=== PATIENT | male | born 1975 | race Caucasian/White ===

== ENCOUNTER 2018-03-08 16:46 | Emergency (ER) | payer OTHER ==
[2018-03-08] MEDS ORDERED: LIDOCAINE 1% INJ-PF (10 MG/ML) 30 ML SDV INJ ONE (18:05)
[2018-03-08] MEDS ORDERED: DIPH/PERTUSS(ACELL)/TETANUS VAC/PF 0.5 ML SYR (>=10YO) IM ONE (18:09)
[2018-03-08] MEDS ORDERED: CEPHALEXIN 500 MG CAPSULE PO ONE (18:09)
--- NOTE | 2018-03-08 18:12 | ER Document Report ---
ED Extremity Problem, Lower - General Chief Complaint: Laceration Stated Complaint: KNEE INJURY Time Seen by Provider: 03/08/18 17:47 Mode of Arrival: Ambulatory Information source: Patient Notes: 42-year-old presents to ED for complaint of a left knee laceration when he states a tree branch fell on his knee. He states the last time he remembers having a tetanus shot was when he was 20. He is alert and oriented respirations regular and unlabored speaking in full sentences walk with a even steady gait. TRAVEL OUTSIDE OF THE [place] IN LAST 30 DAYS: No - HPI Patient complains to provider of: Injury, Pain Location: Knee Occurred: Just prior to arrival Where: Home, Outdoors Onset/Duration: Sudden Quality of pain: Sharp Severity: Moderate Pain Level: 3 Context: Laceration Recent injury: Yes Associated symptoms: Painful ambulation Exacerbated by: Movement, Walking Relieved by: Nothing - Related Data Allergies/Adverse Reactions: No Known Allergies Allergy (Unverified 03/08/18 16:55) Past Medical History - General Information source: Patient - Social History Smoking Status: Never Smoker - vapor cigarettes Chew tobacco use (# tins/day): No Frequency of alcohol use: Social Drug Abuse: None Occupation: Teacher Lives with: Parents Family History: Reviewed & Not Pertinent Patient has suicidal ideation: No Patient has homicidal ideation: No - Past Medical History Cardiac Medical History: Reports: None Pulmonary Medical History: Reports: None EENT Medical History: Reports: None Neurological Medical History: Reports: None Endocrine Medical History: Reports: None Renal/ Medical History: Reports: None Malignancy Medical History: Reports None GI Medical History: Reports: None Musculoskeletal Medical History: Reports Hx Musculoskeletal Trauma Skin Medical History: Reports None Psychiatric Medical History: Reports: None Traumatic Medical History: Reports: Hx Fractures - Right ankle right arm Past Surgical History: Reports: Hx Orthopedic Surgery - Ankle fracture - Immunizations Immunizations up to date: Yes Hx Diphtheria, Pertussis, Tetanus Vaccination: Yes - 03/08/2018 Review of Systems - Review of Systems Constitutional: No symptoms reported EENT: No symptoms reported Cardiovascular: No symptoms reported Respiratory: No symptoms reported Gastrointestinal: No symptoms reported Genitourinary: No symptoms reported Male Genitourinary: No symptoms reported Musculoskeletal: Other - Patient to the left knee Skin: No symptoms reported Hematologic/Lymphatic: No symptoms reported Neurological/Psychological: No symptoms reported -: Yes All other systems reviewed and negative Physical Exam - Vital signs Vitals: Temp Pulse Resp BP Pulse Ox 98.1 F 112 H 14 138/78 H 96 03/08/18 17:03 03/08/18 17:03 03/08/18 17:03 03/08/18 17:03 03/08/18 17:03 Interpretation: Normal - General General appearance: Appears well, Alert - HEENT Head: Normocephalic, Atraumatic Eyes: Normal Pupils: PERRL - Respiratory Respiratory status: No respiratory distress Chest status: Nontender Breath sounds: Normal Chest palpation: Normal - Cardiovascular Rhythm: Regular Heart sounds: Normal auscultation Murmur: No - Abdominal Inspection: Normal Distension: No distension Bowel sounds: Normal Tenderness: Nontender Organomegaly: No organomegaly - Back Back: Normal, Nontender - Extremities General upper extremity: Normal inspection, Nontender, Normal color, Normal ROM , Normal temperature General lower extremity: Normal color, Normal ROM, Normal temperature, Normal weight bearing. No: Najma's sign Knee: Tender, Laceration, Pain with ROM, Patellar tendon intact. No: Abrasion, Deformity, Dislocation, Drawer's test instability, Ecchymosis, Instability, Joint effusion, Laxity with varus stress, Popliteal fossa tender, Tender joint line, Unable to bear weight - Neurological Neuro grossly intact: Yes Cognition: Normal Orientation: AAOx4 [place] Coma Scale Eye Opening: Spontaneous [place] Coma Scale Verbal: Oriented Luisa Coma Scale Motor: Obeys Commands Luisa Coma Scale Total: 15 Speech: Normal Motor strength normal: LUE, RUE, LLE, RLE Sensory: Normal - Psychological Associated symptoms: Normal affect, Normal mood - Skin Skin Temperature: Warm Skin Moisture: Dry Skin Color: Normal Skin irregularity: Laceration Irregularity with: Swelling - Knee, Tenderness Course - Vital Signs Vital signs: Temp Pulse Resp BP Pulse Ox 98.6 F 996 H 16 138/76 H 96 03/08/18 20:18 03/08/18 20:18 03/08/18 20:18 03/08/18 20:18 03/08/18 20:18 Procedures - Immobilization Left Knee Time completed: 19:58 Pre-Proc Neuro Vasc Exam: Normal Immobilizer type: Crutches, Knee immobilizer Performed by: PCT Post-Proc Neuro Vasc Exam: Normal Alignment checked and good: Yes - Laceration/Wound Repair Left Knee Time completed: 19:59 Wound length (cm): 4 Wound's Depth, Shape: Superficial, Linear Laceration pre-procedure: Sterile PPE donned, Sterile drapes applied, Shur- Clens applied Anesthetic type: 1% Lidocaine Volume Anesthetic (mLs): 6 Wound explored: Contaminated, Foreign body removed Irrigated w/ Saline (mLs): 400 Wound Debrided: Minimal Wound Repaired With: Sutures Suture Size/Type: 4:0, Ethilon Number of Sutures: 6 Layer Closure?: No Post-procedure wound care: Sterile dressing applied, Splint applied Post-procedure NV exam normal: Yes Complications: No Discharge - Discharge Clinical Impression: Laceration of left knee with foreign body Qualifiers: Encounter type: initial encounter Qualified Code(s): S81.022A - Laceration with foreign body, left knee, initial encounter Condition: Stable Disposition: HOME, SELF-CARE Additional Instructions: Knee Laceration A laceration on the knee can present some problems. The skin over the knee heals slowly, and seems especially prone to infection. Bending of the knee can disturb the cut and sometimes prevents proper healing. It's important that the wound remain undisturbed. Bending of the knee is absolutely forbidden if it pulls on the stitches. No contact sports or kneeling are allowed. Keep the wound and dressing clean. Do not shower or bathe the area unless okayed by the doctor. If the dressing gets wet, remove it and blot the wound dry. Then reapply a clean, dry dressing. Change the dressing once a day. If any signs of infection occur (swelling, redness, increasing tenderness, red streaks, tender lumps in the groin above the laceration, or fever), see the doctor immediately. SOAP CLEANSING: Gently wash the wound daily using a mild soap (like Ivory, Phisoderm, Neutrogena). Use warm water, rubbing gently until all debris, ooze, and crusting have been washed from the wound. Allow to dry briefly (about 10 minutes) after cleaning. Repeat this cleansing at least three times a day for the first two days and then once or twice a day. ANTIBIOTIC OINTMENT PROTECTION: Your wounds are such that dressing them is not practical or optional. After cleansing, you should apply a thin coating of antibiotic ointment ( Bacitracin, not Neosporin) to the wounds at least three times daily. This lessens infection risk, and may decrease the amount of scarring. Use a q-tip or dull butter knife, not your finger, to apply this ointment. Any debris or ooze which builds up in the ointment should be gently rubbed off with a sterile gauze pad. Harder crusting may need to be gently scrubbed off with a clean wash cloth with soap and warm water, perhaps applying a warm, wet wash cloth to the wound for ten minutes first. Development of redness, severe itching, or blistering may mean allergy to the ointment. See the doctor. TETANUS IMMUNIZATION GIVEN: You have been given an immunization against tetanus. Please record this in your records. In general, a booster is needed only once every 10 years. The tetanus shot protects against tetanus or "lockjaw," which is a complication of certain wound infections (the tetanus shot cannot protect against the actual infection). The immunization site may become warm and red due to local reaction. If this occurs, apply warm compresses and take aspirin or ibuprofen to reduce inflammation and discomfort. Return for evaluation if the reaction becomes severe. Cephalexin The antibiotic you've been prescribed is a member of the cephalosporin class. This type of antibiotic covers a wide variety of infections, including those of the skin, lungs, and urinary tract. It's useful for staph infections. This antibiotic is slightly similar to the penicillin family. In rare cases , a person who is allergic to penicillin will also be allergic to this medication. If you have had a severe allergic reaction to penicillin, and have not taken this antibiotic since that time, notify your doctor. Antibiotics which cover many germs ("broad spectrum" antibiotics) are more likely to cause diarrhea or "yeast" infections. Women prone to vaginal yeast problems may suffer an attack after taking this antibiotic. In infants, oral thrush (white spots "stuck" on the cheek) or yeast diaper rash may result. See your doctor if these problems occur. Call at once if you develop itching, hives , shortness of breath, or lightheadedness. Knee Immobilizing Splint The knee immobilizing splint will protect the injury while healing begins. This type of splint does not allow the knee to bend at all. No running or sports will be possible. If the splint allows painfree walking, it's giving adequate protection. If there is still significant pain, crutches may be needed as well. Don't do anything that hurts. Adjusted the splint, if necessary. The stiffeners on the sides are attached with Velcro, so they can be easily moved to adjust for thigh and calf size. If you need help with these adjustments, come back. You will lose muscle strength in the thigh while using this splint. The doctor will advise you if it's safe to do isometric knee exercises while you use it. USE OF CRUTCHES: The doctor has recommended that you not bear weight at this time. You will need to use crutches. Adjust the crutches so the tops come to about two inches under the armpit while you are standing upright. Use your hands -- not your armpits -- to support your weight. To get into a chair, support yourself with one crutch on the injured side. Hold the chair with the other hand, then lower yourself while putting all your weight on the good leg. Going up stairs is `good leg up, step up, then bring up crutches and bad leg.' Down stairs is `bad leg and crutches down, then bring good leg down.' If you develop numbness or swelling in an arm or hand, you are using the crutches incorrectly. Return if you are having any problems with the crutches. ICE & ELEVATION: Apply ice packs frequently against the painful area. Many different schedules are recommended, such as "20 minutes on, 20 minutes off" or "one hour ice, two hours rest." If you need to work, you may need to go longer between ice treatments. You should plan to have the area ice packed AT LEAST one- fourth of the time. The ice should be applied over the wrap, tape, or splint, or over a layer of cloth -- not directly against the skin. Some ice bags have a built-in cloth and can be put directly on the skin. Your injured part should be elevated as much as possible over the next 48 hours. Try to keep the injury above the level of the heart. Avoid use of the injured area. Elevation and rest will decrease the swelling. USE OF SHZB-IOS-DNHUXOU IBUPROFEN: Ibuprofen (Advil, Nuprin, Medipren, Motrin IB) is a medication for fever and pain control. In addition, it has anti- inflammatory effects which may be beneficial, especially in the treatment of injuries. It's best to take ibuprofen with food. Persons with ulcer disease or allergy to aspirin should notify their physician of this before taking ibuprofen. Ibuprofen can be given every four to six hours, for a total of four doses daily. Age Pain or fever dose Antiinflammatory dose 6-8 yr 200 mg (1 tab) 200 mg (1 tab) 9-11 yr 200 mg (1 tab) 200-400 mg (1-2 tab) 11-14 yr 200-400 mg (1-2 tab) 400 mg (2 tab) 15-adult 400 mg (2 tab) 600 mg (3 tab) FOLLOW-UP CARE: Please return in __3___ days for an infection check and dressing change. Your sutures should be removed in ___10 __ days. To facilitate a timely removal of your sutures, you may return to the Emergency Department at [facility]. You do not need to call for an appointment, but the best time to come in for suture removal is early in the morning. If you have been referred to another physician for follow-up care, call that physicians office for an appointment as you were instructed. If you experience a significant change in your laceration, or if you are concerned there may be an infection (swelling, redness, drainage, increasing tenderness, red streaks, tender lumps in the armpit or groin above the laceration, or fever) , return to the Emergency Department immediately re-evaluation. Prescriptions: Cephalexin Monohydrate [Keflex 500 mg Capsule] 500 mg PO Q6H 5 Days capsule Forms: Elevated Blood Pressure, Return to Work Referrals: ASH ARBOLEDA MD [ACTIVE STAFF] - Follow up as needed VALOREI BARKER MD [ACTIVE STAFF] - Follow up as needed
[2018-03-08 20:19] VITALS: BP 138/76
== END 2018-03-08 20:19 | disposition home or self-care (01) ==
LOC: ER 16:46
DX: S81.022A Laceration with foreign body, left knee, initial encounter (principal); W20.8XXA Other cause of strike by thrown, projected or falling object, initial encounter; Y93.H9 Activity, other involving exterior property and land maintenance, building and construction; Y92.009 Unspecified place in unspecified non-institutional (private) residence as the place of occurrence of the external cause
CPT/HCPCS: 99283; 90471; 90715; 12002; L1830; J3490